=== PATIENT | male | born 1980 | race Caucasian/White ===

== ENCOUNTER 2017-06-29 00:34 | Emergency (ER) | payer OTHER ==
--- NOTE | 2017-06-29 01:21 | ED Physician Documentation ---
History of Present Illness - Stated complaint Stated Complaint: MALE - Chief complaint Chief Complaint: General - History obtained from History obtained from: Patient - History of Present Illness Timing: Today Improved by: no ameliorating factors Worsened by: no exacerbating factors - Additonal information Additional information: c/o hemorrhoids noticed earlier today when showering, manifest as mildly tender lumps around anus. had hemorrhoids preciously, but not for many years. Review of Systems GI: denies: Abdominal Pain PD PAST MEDICAL HISTORY - Past Medical History Past Medical History: Yes GI: Diverticulitis Psych: ADD/ADHD Other Past Medical History: Hemorrhoids - Past Surgical History Past Surgical History: Yes HEENT: Myringotomy (tubes) - Present Medications Home Medications: Ambulatory Orders Medication Instructions Recorded Confirmed Dextroamphetamine/Amphetamine 1 tab PO QPM 06/29/17 06/29/17 [Adderall 10 mg Tablet] Dextroamphetamine/Amphetamine 1 tab PO DAILY 06/29/17 06/29/17 [Adderall 20 mg Tablet] Lidocaine Viscous 2% [Xylocaine 1 film MM Q4H PRN #1 bottle 06/29/17 Viscous 2%] Pramoxine HCl [Proctofoam] 15 gm TP TID #1 foam 06/29/17 - Allergies Allergies/Adverse Reactions: Allergies Allergy/AdvReac Type Severity Reaction Status Date / Time No Known Drug Allergies Allergy Verified 06/29/17 00:44 - Social History Does the pt smoke?: No Smoking Status: Never smoker Does the pt drink ETOH?: Yes Does the pt have substance abuse?: No - Immunizations Immunizations are current?: Yes - POLST Patient has POLST: No PD ED PE NORMAL - Vitals Vital signs reviewed: Yes - General General: Alert and oriented X 3, No acute distress, Well developed/nourished PD ED PE EXPANDED - Rectal Rectal: Hemorrhoid (large hemorrhoid and two smaller hemorrhoids without evidence of thrombosis, minimal tenderness) Results - Vitals Vitals: Vital Signs - 24 hr 06/29/17 06/29/17 00:35 02:30 Temperature 36.8 C Heart Rate 73 71 Respiratory 16 18 Rate Blood Pressure 128/81 H 134/90 H O2 Saturation 98 Oxygen O2 Source Room air PD MEDICAL DECISION MAKING - ED course Complexity details: considered differential, d/w patient Departure - Departure Disposition: 01 Home, Self Care Clinical Impression: Hemorrhoids Condition: Good Instructions: ED Hemorrhoids Follow-Up: [facility] [Provider Group] Prescriptions: Lidocaine Viscous 2% [Xylocaine Viscous 2%] 1 film MM Q4H PRN #1 bottle PRN Reason: Pain Pramoxine HCl [Proctofoam] 15 gm TP TID #1 foam Discharge Date/Time: 06/29/17 02:32
[2017-06-29] MEDS ORDERED: IBUPROFEN 600 MG TABLET PO STA (02:13)
[2017-06-29 02:36] VITALS: BP 134/90
[2017-06-29] MEDS ORDERED: IBUPROFEN 600 MG TABLET PO ONE (02:36)
== END 2017-06-29 02:32 | disposition home or self-care (01) ==
LOC: ED 00:34
DX: K64.9 Unspecified hemorrhoids (principal); Z87.19 Personal history of other diseases of the digestive system
CPT/HCPCS: 99283; A9270

== ENCOUNTER 2017-11-15 21:45 | Emergency (ER) | payer OTHER ==
--- NOTE | 2017-11-15 22:25 | ED Physician Documentation ---
PD HPI OPHTHO - Stated complaint Stated Complaint: SWOLLEN RT EYELID - Chief complaint Chief Complaint: Heent - History obtained from History obtained from: Patient - History of Present Illness Timing - onset: How many days ago (2) Timing - duration: Days (2) Timing - details: Gradual onset Pain level max: 3 Pain level now: 3 Location: Right Quality / character: Aching Associated symptoms: Redness, Swelling, Discharge Contributing factors: No: Exposed to conjunctivitis, Recent URI, FB, UV light ( welding etc), Chemical exposure, acid, Chemical exposure, base, Blunt trauma, Wears glasses, Wears contacts Similar symptoms before: Has not had sx before Recently seen: Other (seen at sick call yesterday for same.) Review of Systems Constitutional: denies: Fever, Chills Skin: denies: Rash Musculoskeletal: denies: Neck pain, Back pain Neurologic: denies: Headache PD PAST MEDICAL HISTORY - Past Medical History Past Medical History: No GI: Diverticulitis Psych: ADD/ADHD - Past Surgical History Past Surgical History: Yes HEENT: Myringotomy (tubes) - Present Medications Home Medications: Ambulatory Orders Medication Instructions Recorded Confirmed Dextroamphetamine/Amphetamine 1 tab PO QPM 06/29/17 11/15/17 [Adderall 10 mg Tablet] Dextroamphetamine/Amphetamine 1 tab PO DAILY 06/29/17 11/15/17 [Adderall 20 mg Tablet] Polymyxin B/Trimeth Ophth Drop 1 drops RIGHTEYE Q3H 7 Days #1 11/15/17 [Polytrim Ophth Drops] bottle - Allergies Allergies/Adverse Reactions: Allergies Allergy/AdvReac Type Severity Reaction Status Date / Time No Known Drug Allergies Allergy Verified 11/15/17 21:52 - Living Situation Living Arrangement: reports: At home - Social History Does the pt smoke?: No Smoking Status: Never smoker Does the pt drink ETOH?: Yes Does the pt have substance abuse?: No - Immunizations Immunizations are current?: Yes - POLST Patient has POLST: No PD ED PE NORMAL - Vitals Vital signs reviewed: Yes - General General: Alert and oriented X 3 - HEENT HEENT: PERRL, EOMI, Moist mucous membranes, Other (Left eye and eyelid is normal. Right eye there is mild swelling to the lower eyelid. Slight yellow discharge. Conjunctival injection present. Fluorescein staining reveals no acute abnormalities. No visible foreign bodies. Eyelids everted. Normal vision.) - Neck Neck: Supple, no meningeal sign - Cardiac Cardiac: RRR - Respiratory Respiratory: No respiratory distress, Clear bilaterally - Derm Derm: Warm and dry - Neuro Neuro: Alert and oriented X 3 Results - Vitals Vitals: Vital Signs - 24 hr 11/15/17 11/15/17 11/15/17 21:47 22:52 23:00 Temperature 36.6 C 36.6 C 36.6 C Heart Rate 81 74 78 Respiratory 15 16 18 Rate Blood Pressure 146/99 H 128/96 H 137/97 H O2 Saturation 97 98 98 Oxygen O2 Source Room air PD MEDICAL DECISION MAKING - ED course Complexity details: considered differential, d/w patient, d/w family ED course: Patient is a 37-year-old male who presents to the emergency department with what appears to be a right eye bacterial conjunctivitis. He is well-appearing, nontoxic. No evidence of foreign body or corneal ulcer. Does not wear contacts or glasses. Will place on Polytrim ophthalmic and have him follow-up with his doctor. Patient counseled regarding signs and symptoms for which I believe and urgent re-evaluation would be necessary. Patient with good understanding of and agreement to plan and is comfortable going home at this time This document was made in part using voice recognition software. While efforts are made to proofread this document, sound alike and grammatical errors may occur. Departure - Departure Disposition: 01 Home, Self Care Clinical Impression: Bacterial conjunctivitis of right eye Condition: Good Instructions: ED Conjunctivitis Bacterial Follow-Up: your,doctor in 1 week if not better [Other] Prescriptions: Polymyxin B/Trimeth Ophth Drop [Polytrim Ophth Drops] 1 drops RIGHTEYE Q3H 7 Days #1 bottle Comments: Use the eye drops every 3 hours while awake. Also apply warm compresses 3 times per day. Return if you worsen. Discharge Date/Time: 11/15/17 23:01
[2017-11-15] MEDS ORDERED: PROPARACAINE 0.5% OPHTH DROPS 15 ML EACHEYE STA (22:26)
[2017-11-15] MEDS ORDERED: POLYMYXIN B/TRIMETH OPHTH DROPS RIGHTEYE STA (22:35)
[2017-11-15 23:01] VITALS: BP 137/97
== END 2017-11-15 23:01 | disposition home or self-care (01) ==
LOC: ED 21:45
DX: H10.021 Other mucopurulent conjunctivitis, right eye (principal)
CPT/HCPCS: 99283; A9270; J3490

== ENCOUNTER 2019-11-03 09:32 | Emergency (ER) | payer OTHER ==
--- NOTE | 2019-11-03 10:08 | ED Physician Documentation ---
History of Present Illness - Stated complaint Stated Complaint: R LEG PX,BACK PX - Chief complaint Chief Complaint: Ext Problem - History obtained from History obtained from: Patient - Additonal information Additional information: Patient comes emergency department complaining of right lower extremity pain for the last 3 weeks. He states he really does not have any pain on the left side, though this is documented in triage note. The patient states that it started around 15 of October with a feeling of spasm in his calf. The patient states that he was seen by his primary care physician, who put him on a muscle relaxer. Patient states he ran out of his muscle relaxer a few days ago, and that did not seem to help the pain all that much. He states that now, he has a feeling of pain behind his right knee and up into his hamstrings area. He states his right hip also hurts somewhat and that his back is sore. Patient states that the pain definitely feels like it is coming from the leg and not from the back. He denies any history of sciatica. No DVT history. He has not had a significant GI illness at any time the last few weeks with suspected electrolyte loss. He states he really has not been working out much since the code quarantine was initiated. He denies any fevers or chills. No redness no recent back injury. Patient states that he does have a history of some "back problems" but that he has never had anything like this before. He is not in any diuretic medications currently. No other complaints at this time. Review of Systems Ten Systems: 10 systems reviewed and negative Constitutional: reports: Reviewed and negative Eyes: reports: Reviewed and negative Ears: reports: Reviewed and negative Nose: reports: Reviewed and negative Throat: reports: Reviewed and negative Cardiac: reports: Reviewed and negative Respiratory: reports: Reviewed and negative GI: reports: Reviewed and negative : reports: Reviewed and negative Skin: reports: Reviewed and negative Musculoskeletal: reports: Extremity pain. denies: Extremity swelling Neurologic: reports: Reviewed and negative Psychiatric: reports: Reviewed and negative Endocrine: reports: Reviewed and negative Immunocompromised: reports: Reviewed and negative PD PAST MEDICAL HISTORY - Past Medical History GI: Diverticulitis Psych: ADD/ADHD - Past Surgical History Past Surgical History: Yes HEENT: Myringotomy (tubes) - Present Medications Home Medications: Ambulatory Orders Medication Instructions Recorded Confirmed Cyclobenzaprine [Flexeril] 10 mg PO DAILY PRN 20 Days #20 11/03/19 tablet Loratadine [Claritin] 10 mg PO 11/03/19 Pregabalin [Lyrica] 50 mg PO DAILY 14 Days #20 capsule 11/03/19 - Allergies Allergies/Adverse Reactions: Allergies Allergy/AdvReac Type Severity Reaction Status Date / Time No Known Drug Allergies Allergy Verified 11/03/19 09:39 - Social History Does the pt smoke?: No Smoking Status: Never smoker Does the pt drink ETOH?: Yes Does the pt have substance abuse?: No - Immunizations Immunizations are current?: Yes - POLST Patient has POLST: No PD ED PE NORMAL - Vitals Vital signs reviewed: Yes - General General: Alert and oriented X 3, No acute distress, Well developed/nourished - HEENT HEENT: Atraumatic, PERRL, EOMI, Moist mucous membranes - Neck Neck: Supple, no meningeal sign - Cardiac Cardiac: RRR, No murmur - Respiratory Respiratory: No respiratory distress, Clear bilaterally - Abdomen Abdomen: Soft, Non tender, Non distended - Back Back: No spinal TTP, Other (Patient has tenderness over the posterior aspect of his right iliac wing.) - Derm Derm: Normal color, Warm and dry, No rash - Extremities Extremities: No deformity, Normal ROM s pain, No edema, Other (Patient has some tenderness of his distal calf muscle on the right, as well asTenderness just medial to his lateral hamstring tendon. No tenderness over his right hip.No edema of his knee. No joint line tenderness or peripatellar tenderness.) - Neuro Neuro: Alert and oriented X 3, web content executive 2-12 intact, No motor deficit, No sensory deficit, Normal speech - Psych Psych: Normal mood, Normal affect Results - Vitals Vitals: Vital Signs - 24 hr 11/03/19 11/03/19 09:37 12:39 Temperature 36.8 C Heart Rate 99 73 Respiratory 16 16 Rate Blood Pressure 157/113 H 154/109 H O2 Saturation 99 100 Oxygen O2 Source Room air - Labs Labs: Laboratory Tests 11/03/19 10:11 Sodium 137 Potassium 3.8 Chloride 100 L Carbon Dioxide 30 Anion Gap 7.0 BUN 20 Creatinine 0.9 Estimated GFR (MDRD) 93 Glucose 104 H Calcium 9.5 Total Bilirubin 0.8 AST 30 ALT 59 Alkaline Phosphatase 79 Total Protein 7.8 Albumin 4.6 Globulin 3.2 Albumin/Globulin Ratio 1.4 Lipase 27 - Rads (name of study) Duplex ultrasound right lower extremity Radiology: Final report received, See rad report (Negative DVT.) PD MEDICAL DECISION MAKING - ED course Complexity details: reviewed results, re-evaluated patient, considered differential, d/w patient ED course: The patient symptoms seem to most consistent with a muscular etiology. In light of this, I did feel electrolytes should be evaluated to see if an electrolyte abnormality was responsible for the repeated spasming. I did also order an ultrasound the patient's right lower extremity to evaluate not only for potential atypical presentation of DVT, but also for presence of Rizo's cyst which may be irritating the area and causing a feeling of spasm, as well. Both studies were done and unremarkable. The patient stated that the muscle relaxers that helped him sleep, and he would not mind having a real refill of that prescription. I discussed with him that his symptoms may represent a form of restless leg syndrome, and patient did note that he had wondered if this was part of his problem, because he feels a pressure in his legs often at night and feels that he has to kick it or move it to get rid of the sensation. He states his also has restless leg syndrome, and now notes that he mainly came in because she made him because he was keeping her awake at night with his thrashing around. I have given the patient a refill of the Flexeril, with instructions to follow-up with his primary care physician to discuss further management and work-up of this problem, as well as to address his elevated blood pressure. I have also given him a two-week trial of Lyrica which he may use as an alternative to the Flexeril, to see if this is more helpful. We have di scussed home management of the symptoms, as well as the usual indications for return. Departure - Departure Disposition: 01 Home, Self Care Clinical Impression: Muscle spasm of calf Pain in extremity Qualifiers: Extremity pain location: lower leg Laterality: right Qualified Code(s): M79.661 - Pain in right lower leg Condition: Stable Instructions: ED Muscle Pain Leg Cramps Prescriptions: Cyclobenzaprine [Flexeril] 10 mg PO DAILY PRN 20 Days #20 tablet PRN Reason: Spasms Pregabalin [Lyrica] 50 mg PO DAILY 14 Days #20 capsule Comments: Your electrolytes and ultrasound look good. It is not clear exactly what is causing the heaviness or spasms, but this may be related to restless leg syndrome. The muscle relaxers have been refilled, but you may also try, as an alternative, taking the pregabalin/Lyrica, which has been prescribed today. This is one of the medications used for restless leg syndrome, which is found to be helpful. Please make an appointment today to follow-up with your primary care physician regarding this as well as the high blood pressure you have been having. Discharge Date/Time: 11/03/19 12:41
[2019-11-03 10:31] LABS: ALBUMIN 4.6 g/dL (3.2-5.5); ALBUMIN/GLOBULIN RATIO 1.4 (1.0-2.2); BILIRUBIN,TOTAL 0.8 mg/dL (0.2-1.0); CALCIUM 9.5 mg/dL (8.5-10.3); CREATININE 0.9 mg/dL (0.6-1.2); TOTAL PROTEIN 7.8 g/dL (6.7-8.2)
--- NOTE | 2019-11-03 11:54 | Ultrasound Report ---
Reason: RLE pain x 3 weeks Procedure Date: 11/03/2019 Accession Number: [id number] / [id number] Procedure: US - Duplex Ext Veins Right CPT Code: Final Report FULL RESULT: EXAM: RIGHT LOWER EXTREMITY VENOUS ULTRASOUND EXAM DATE: 11/03/2019 11:33 AM. CLINICAL HISTORY: Right lower extremity pain x 3 weeks. COMPARISON: None. TECHNIQUE: Real-time sonographic vascular imaging was performed by the cable splicer helper through the lower extremity utilizing both color-flow and Doppler spectral analysis. Multiple member services representative static images were saved for review. FINDINGS: Common Femoral Vein (CFV): Normal. CFV-GSV Junction: Normal. Profunda Femoral Vein (PFV): Normal. Femoral Vein (FV) Prox: Normal. Femoral Vein (FV) Mid: Normal. Femoral Vein (FV) Dist: Normal. Popliteal Vein: Normal. Posterior Tibial Veins: Normal. Peroneal Veins: Normal. Other: None. IMPRESSION: No evidence for deep venous thrombosis in the right lower extremity. RADIA
[2019-11-03 12:41] VITALS: BP 154/109
== END 2019-11-03 12:41 | disposition home or self-care (01) ==
LOC: ED 09:32
DX: M62.831 Muscle spasm of calf (principal); M79.661 Pain in right lower leg
CPT/HCPCS: 36415; 80053; 82310; 83690; 99284; 99285

== ENCOUNTER 2020-11-07 11:31 | Emergency (ER) | payer OTHER ==
[2020-11-07] MEDS ORDERED: KETOROLAC 60 MG/2 ML VIAL IM STA (11:51)
--- NOTE | 2020-11-07 11:56 | ED Physician Documentation ---
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 Began yesterday. He reports tingling in the small and ring finger of the small hand as well as intermittently the thumb. pain is sharp, will radiate from his wrists to the shoulder. sometimes feels a cramping in his muscles. He has been told in the past that he has suspected carpal tunnel but does not consistently wear his braces at night. He denies neck pain chest pain shortness of air or any recent falls or trauma though in the past he has been treated with physical therapy for upper back and spine pain. He has not taken anything for analgesia. He has no fevers arm swelling or erythema. Review of Systems Constitutional: denies: Fever, Chills, Myalgias Eyes: reports: Reviewed and negative Ears: reports: Reviewed and negative Nose: reports: Reviewed and negative Throat: reports: Reviewed and negative Cardiac: denies: Chest pain / pressure, Palpitations, Pedal edema, Calf pain Respiratory: denies: Dyspnea, Cough, Hemoptysis, Wheezing GI: denies: Abdominal Pain, Abdominal Swelling, Nausea, Vomiting : denies: Dysuria, Frequency Skin: denies: Rash, Lesions Musculoskeletal: reports: Extremity pain (right arm). denies: Neck pain, Back pain Neurologic: denies: Generalized weakness, Focal weakness, Syncope Psychiatric: reports: Reviewed and negative PD PAST MEDICAL HISTORY - Past Medical History GI: Diverticulitis Psych: ADD/ADHD - Past Surgical History Past Surgical History: Yes HEENT: Myringotomy (tubes) - Present Medications Home Medications: Ambulatory Orders Medication Instructions Recorded Confirmed Dextroamphetamine/Amphetamine 25 mg PO DAILY 11/07/20 11/07/20 [Adderall Xr 25 mg Capsule] Hydrochlorothiazide 25 mg PO DAILY 11/07/20 11/07/20 Ibuprofen [Motrin] 600 mg PO Q6H PRN #30 tab 11/07/20 - Allergies Allergies/Adverse Reactions: Allergies Allergy/AdvReac Type Severity Reaction Status Date / Time No Known Drug Allergies Allergy Verified 11/07/20 11:34 - Social History Does the pt smoke?: No Smoking Status: Never smoker Does the pt drink ETOH?: Yes Does the pt have substance abuse?: No - Immunizations Immunizations are current?: Yes - POLST Patient has POLST: No PD ED PE EXPANDED - General General: Alert, Well developed/nourished - Neck Neck: Supple w/out meningeal sx. No: Adenopathy, No tenderness, Soft tissue TTP, Bony TTP, Limited ROM (full ROM in all planes; no pain with axial loading) - Cardiac Cardiac: Regular Rate, Radial strong equal, Cap refill < 2 sec. No: Murmur Present - Respiratory Respiratory: Clear to ausultation clive. No: Distress, Labored - Extremities Extremities: Normal, Right shoulder (normal exam; no pain with movement. no pain with phalens. No swellign, erythema. 2+ radial pulse. Normal grasp and reflexes brachail of the right arm). No: Deformity, Tenderness - Neuro Neuro: Alert and Oriented X 3, CNII-XII intact - GCS Eye Opening: Spontaneous Motor: Obeys Commands Verbal: Oriented Total: 15 Results - Vitals Vitals: Vital Signs - 24 hr 11/07/20 11:34 Temperature 36 C L Heart Rate 74 Respiratory 16 Rate Blood Pressure 156/101 H O2 Saturation 97 Oxygen O2 Source Room air - Rads (name of study) Cervical spine xr Radiology: Final report received (Multilevel degenerative disc disease.) PD MEDICAL DECISION MAKING - ED course Complexity details: reviewed results, re-evaluated patient ED course: 40-year-old male presents emergency department for evaluation of right forearm pain as well as numbness and tingling in the small and ring fingers of the right hand. He does have a history of carpal tunnel for which she is not consistently wearing his nighttime brace. There are no obvious examination findings. Subjectively he has some tingling but no loss of strength or weakness. There is no swelling or erythema to suggest infection or DVT. Cervical spine imaging reveals multilevel degenerative disc disease. However he had no pain with axial loading and no increase in tingling therefore I doubt cervical radiculopathy however given the presentation in the forearm and small and ring fingers I suspect an ulnar neuropathy or compression syndrome. Patient will be given a nighttime wrist splint recommendation for NSAID medication and follow-up with [facility]. He may benefit from an EMG or referral to hand therapy. Departure - Departure Disposition: 01 Home, Self Care Clinical Impression: Right forearm pain DJD (degenerative joint disease), cervical Qualifiers: Spinal osteoarthritis complication: with radiculopathy Qualified Code(s): M47.22 - Other spondylosis with radiculopathy, cervical region Condition: Stable Record reviewed to determine appropriate education?: Yes Instructions: ED Carpal Tunnel, ED Degenerative Joint Disease Prescriptions: Ibuprofen [Motrin] 600 mg PO Q6H PRN #30 tab PRN Reason: Pain Comments: Pritesh allison were seen in the emergency department today for concern of tingling in the fingers of your right hand as well as forearm pain. The x-ray of your cervical spine shows that you are developing degenerative disc disease in your cervical spine. This may be contributing to your symptoms. As we discussed I suspect the cause of your symptoms is most likely a nerve entrapment. Likely worsening carpal tunnel or even ulnar nerve entrapment coming from the elbow. Please wear the wrist splint at nighttime. Would also like you to take a course of ibuprofen 3 times a day for the next 4 to 5 days until you see [facility]. In the long-term you may benefit from referral to hand therapy or an EMG to obtain a nerve conduction study. If at any point you have forearm swelling, redness chest pain or shortness of air then please return immediately to the ER for a second look.
--- OUTSIDE RECORDS SUMMARY | 2020-11-07 11:58 | EXTERNAL MEDICAL SUMMARY RPT | Continuity of Care Document ---
:1980 Demographics Phone Unavailable Preferred Language Unknown Marital Status Unknown Muslim Affiliation Unknown Race Unknown Ethnic Group Unknown Author Organization [facility] Address [address] [id number] Phone Social History date description facility [phone]
--- NOTE | 2020-11-07 12:41 | XRAY Report ---
PROCEDURE: Cervical Spine 2 View INDICATIONS: right arm pain; DJD TECHNIQUE: 3 view(s) of the cervical spine were acquired. COMPARISON: None. FINDINGS: Bones: No fractures or dislocations to the T1 moderate bilateral C4-C5 and C5-C6 uncovertebral joint hypertrophy. level. The lateral masses of C1 appear intact on the odontoid view. No suspicious bon y lesions. Moderate C5-C6 degenerative disc disease. Mild to moderate C6-C7 degenerative disease mild C4-C5 and C7-T1 degenerative disc disease. Soft tissues: No prevertebral soft tissue swelling. IMPRESSION: 1. Multilevel degenerative disc disease. 2. Multilevel uncovertebral arthropathy. 3. No fracture. No acute osseous lesion. If there is continued clinical concern for pathology, then M RI should be considered for further evaluation. Reviewed by: Carmela Edwards MD, PhD on 11/07/2020 12:39 PM PDT Approved by: Carmela Edwards MD, PhD on 11/07/2020 12:39 PM PDT Station ID: [id number]
[2020-11-07 13:09] VITALS: BP 149/98
== END 2020-11-07 13:11 | disposition home or self-care (01) ==
LOC: ED 11:31
DX: M79.631 Pain in right forearm (principal); M47.22 Other spondylosis with radiculopathy, cervical region; M50.121 Cervical disc disorder at C4-C5 level with radiculopathy; G56.01 Carpal tunnel syndrome, right upper limb
CPT/HCPCS: 96372; 99283; 99284

== ENCOUNTER 2021-09-18 14:14 | Emergency (ER) | payer OTHER ==
[2021-09-18 14:22] VITALS: BP 169/107
[2021-09-18 14:53] LABS: BASOPHILS % (AUTO) 0.3 %; EOSINOPHILS # (AUTO) 0.3 10^3/uL (0.0-0.7); EOSINOPHILS % (AUTO) 2.4 %; HCT - HEMATOCRIT 45.4 % (42.0-52.0); HGB - HEMOGLOBIN 16.1 g/dL (14.0-18.0); LYMPHOCYTES # (AUTO) 2.8 10^3/uL (1.5-3.5); LYMPHOCYTES % (AUTO) 25.9 %; MEAN CORPUSCULAR HEMOGLOBIN 30.8 pg (27.0-31.0); MEAN CORPUSCULAR HGB CONC 35.5 g/dL (32.0-36.0); MEAN PLATELET VOLUME 8.7 fL (7.4-11.4); MONOCYTES # (AUTO) 0.9 10^3/uL (0.0-1.0); MONOCYTES % (AUTO) 8.2 %; NEUTROPHILS # (AUTO) 6.9 10^3/uL (1.5-6.6); PLT - PLATELET COUNT 327 10^3/uL (130-450); RED BLOOD COUNT 5.22 10^6/uL (4.70-6.10); RED CELL DISTRIBUTION WIDTH 12.6 % (12.0-15.0); WHITE BLOOD COUNT 10.9 x10^3/uL (4.8-10.8)
[2021-09-18 15:07] LABS: ALBUMIN 4.8 g/dL (3.2-5.5); ALBUMIN/GLOBULIN RATIO 1.4 (1.0-2.2); BILIRUBIN,TOTAL 0.9 mg/dL (0.2-1.0); CALCIUM 9.9 mg/dL (8.5-10.3); POTASSIUM 4.2 mmol/L (3.5-5.0); TOTAL PROTEIN 8.2 g/dL (6.7-8.2)
--- NOTE | 2021-09-18 16:03 | ED Physician Documentation ---
PD HPI ABD PAIN - Stated complaint Stated Complaint: RT ABD PX - Chief complaint Chief Complaint: Abd Pain - History obtained from History obtained from: Patient - History of Present Illness Timing - onset: Today Timing - duration: Hours Timing - details: Abrupt onset, Still present Quality: Cramping, Aching, Pain Location: RUQ, Epigastric Radiation: No: Chest, Lower back, Right flank Improved by: No: Laying still Worsened by: Palpation. No: Breathing Associated symptoms: Nausea, Other (has noted some heartburn at times the past week or two.). No: Fever, Vomiting, Constipation, Melena, Loss of appetite Similar symptoms before: Has not had sx before Recently seen: Clinic ([facility] and referred to ER for concern of needing more prompt testing.) Review of Systems Constitutional: denies: Fever, Chills Nose: denies: Rhinorrhea / runny nose, Congestion Throat: denies: Sore throat Respiratory: denies: Cough GI: reports: Abdominal Pain, Nausea. denies: Vomiting, Diarrhea, Bloody / black stool Neurologic: denies: Generalized weakness, Near syncope PD PAST MEDICAL HISTORY - Past Medical History Cardiovascular: Hypertension Respiratory: None Neuro: Headaches Endocrine/Autoimmune: None GI: Diverticulitis : None HEENT: None Psych: ADD/ADHD Musculoskeletal: Chronic back pain Derm: None - Past Surgical History Past Surgical History: Yes HEENT: Myringotomy (tubes) - Present Medications Home Medications: Ambulatory Orders Medication Instructions Recorded Confirmed hydroCHLOROthiazide 25 mg PO DAILY 11/07/20 09/18/21 [Hydrochlorothiazide] Famotidine [Pepcid] 20 mg PO DAILY #20 tablet 09/18/21 Telmisartan 20 mg PO 09/18/21 - Allergies Allergies/Adverse Reactions: Allergies Allergy/AdvReac Type Severity Reaction Status Date / Time No Known Drug Allergies Allergy Verified 09/18/21 14:22 - Living Situation Living Situation: reports: With spouse/s.o. Living Arrangement: reports: At home - Social History Does the pt smoke?: No Smoking Status: Never smoker Does the pt drink ETOH?: Yes ETOH Use: Other (occasional) Does the pt have substance abuse?: No - Immunizations Immunizations are current?: Yes - POLST Patient has POLST: No PD ED PE NORMAL - Vitals Vital signs reviewed: Yes - General General: Alert and oriented X 3, No acute distress, Well developed/nourished - Neck Neck: Supple, no meningeal sign, No adenopathy - Cardiac Cardiac: RRR, No murmur - Respiratory Respiratory: Clear bilaterally - Abdomen Abdomen: Normal bowel sounds, Soft, Non distended, No organomegaly, Other (tender without guarding RUQ and epigastric area. ) - Back Back: No CVA TTP - Derm Derm: Normal color, Warm and dry Results - Vitals Vitals: Vital Signs - 24 hr 09/18/21 14:19 Temperature 36.4 C L Heart Rate 71 Respiratory 16 Rate Blood Pressure 169/107 H O2 Saturation 97 Oxygen O2 Source Room air - Labs Labs: Laboratory Tests 09/18/21 09/18/21 09/18/21 14:48 14:48 16:18 WBC 10.9 H RBC 5.22 Hgb 16.1 Hct 45.4 MCV 87.0 MCH 30.8 MCHC 35.5 RDW 12.6 Plt Count 327 MPV 8.7 Neut # (Auto) 6.9 H Lymph # (Auto) 2.8 [place] # (Auto) 0.9 Eos # (Auto) 0.3 Baso # (Auto) 0.0 Absolute Nucleated RBC 0.00 Nucleated RBC % 0.0 Sodium 138 Potassium 4.2 Chloride 100 L Carbon Dioxide 28 Anion Gap 10.0 BUN 15 Creatinine 1.0 Estimated GFR (MDRD) 82 L Glucose 96 Calcium 9.9 Total Bilirubin 0.9 AST 24 ALT 43 Alkaline Phosphatase 79 Total Protein 8.2 Albumin 4.8 Globulin 3.4 Albumin/Globulin Ratio 1.4 Lipase 30 Urine Color YELLOW Urine Clarity CLEAR Urine pH 5.5 Ur Specific [place] 1.025 Urine Protein NEGATIVE Urine Glucose (UA) NEGATIVE Urine Ketones NEGATIVE Urine Occult Blood NEGATIVE Urine Nitrite NEGATIVE Urine Bilirubin NEGATIVE Urine Urobilinogen 0.2 (NORMAL) Ur Leukocyte Esterase NEGATIVE Ur Microscopic Review NOT INDICATED Urine Culture Comments NOT INDICATED - Rads (name of study) RUQ U/S Radiology: Prelim report reviewed (RUQ U?S shows normal gallbladder and CBD. NO acute process. labs good. GIVen GI cocktail with resolution of abd cramping. SEems like gastritis. ), See rad report PD MEDICAL DECISION MAKING - ED course Complexity details: reviewed results, considered differential (GB versus biliar vs gastritis vs other process. ), d/w patient Departure - Departure Disposition: 01 Home, Self Care Clinical Impression: Upper abdominal pain Acute gastritis Qualifiers: Gastritis type: unspecified gastritis Gastritis bleeding: without bleeding Qualified Code(s): K29.00 - Acute gastritis without bleeding Condition: Stable Record reviewed to determine appropriate education?: Yes Instructions: ED Gastritis Follow-Up: Rakan Barker MD [Primary Care Provider] - Prescriptions: Famotidine [Pepcid] 20 mg PO DAILY #20 tablet Comments: Your blood tests including those focused on pancreas and liver as well as your ultrasound are normal. No signs of gallbladder stones inflammation or swelling. I think you have symptoms related to an irritation of the stomach (gastritis). Avoid irritants of the stomach such as excess caffeine, alcohol, spicy foods. Regular diet is okay. I would just suggest famotidine acid reducing medicine twice daily for the next few days and then once daily for 2 or 3 weeks. To that you can add antacid such as Maalox Mylanta Tums or similar every 2 or 3 hours if needed for discomfort. This may be most useful before bedtime and after meals. Recheck if not improved well over the next few days and read to her and if worsening pain, vomiting, migration of the pain to other areas, fevers or other concerns. Discharge Date/Time: 09/18/21 17:39
[2021-09-18] MEDS ORDERED: MAG HYDROX/AL HYDROX/SIMETH 30 ML UDC PO STA (16:25)
[2021-09-18] MEDS ORDERED: LIDOCAINE VISCOUS 2% 15 ML UDC MM STA (16:25)
--- NOTE | 2021-09-18 16:26 | Ultrasound Report ---
PROCEDURE: Abdomen Limited INDICATIONS: RUQ pain today after eating lunch TECHNIQUE: Real-time scanning was performed of the abdominal and retroperitoneal organs, with image documentatio n. COMPARISON: None. FINDINGS: Liver: The liver demonstrates diffusely increased echotexture without focal abnormalities which is c onsistent with chronic hepatocellular disease/hepatic steatosis. Gallbladder: Gallbladder is normal in appearance without gallstones, gallbladder wall thickening, or pericholecystic fluid. Negative sonographic Hyde's sign. Biliary ducts: Intrahepatic bile ducts are non-dilated. Extrahepatic bile duct caliber measures 7 m m. Normal is 6-7 mm or less in diameter, or 10 mm or less post-cholecystectomy. Pancreas: Visualized portions of the pancreas are sonographically normal. Kidneys: Right kidney is normal in size and echotexture. Right kidney measures 11.1 cm long. No hydr onephrosis or nephrolithiasis. No solid masses. Miscellaneous: No free abdominal fluid. IMPRESSION: Diffusely increased hepatic echotexture likely representing hepatic steatosis or sequela of chronic h epatocellular disease. Normal sonographic appearance of the gallbladder. No evidence for cholecystitis or cholelithiasis. Reviewed by: Zeeshan De La Rosa MD on 09/18/2021 4:24 PM PST Approved by: Zeeshan De La Rosa MD on 09/18/2021 4:24 PM PST Station ID: [id number]
[2021-09-18 16:48] LABS: BILIRUBIN,URINE NEGATIVE (NEGATIVE); GLUCOSE, URINE (UA) NEGATIVE (NEGATIVE); KETONES,URINE (UA) NEGATIVE (NEGATIVE); LEUKOCYTE ESTERASE, URINE NEGATIVE (NEGATIVE); NITRITE,URINE NEGATIVE (NEGATIVE); OCCULT BLOOD,URINE NEGATIVE (NEGATIVE); PH,URINE 5.5 PH (5.0-7.5); PROTEIN,URINE NEGATIVE (NEGATIVE); UROBILINOGEN,URINE 0.2 (NORMAL) E.U./dL (NORMAL)
[2021-09-18 16:50] LABS: CLARITY,URINE CLEAR (CLEAR)
[2021-09-18] MEDS ORDERED: FAMOTIDINE 20 MG TABLET PO STA (17:12)
== END 2021-09-18 17:39 | disposition home or self-care (01) ==
LOC: ED 14:14
DX: K29.00 Acute gastritis without bleeding (principal); I10 Essential (primary) hypertension
CPT/HCPCS: 36415; 76705; 80053; 81003; 83690; 85025; 99282; 99284; A9270; 81001; 87086

== ENCOUNTER → 2021-11-26 | Outpatient (CLI) | payer OTHER ==
[2021-11-26 18:10] VITALS: BP 146/88
--- NOTE | 2021-11-26 18:10 | SLEEP CARE CONSULTATION ---
Information from patient questionnaire entered by Mike Gatica. I have reviewed and concur with the information entered by Mike Gatica. This document represents the service I personally performed and the decisions made by me, Ulises Howard MD, [facility]. History of Present Illness Service Date and Time: 11/26/2021 1120 Reason for Visit: New patient (INITAL, ONSET 07/2008, HASN'T USED CPAP SINCE 2012) Chief Complaint: reports: Insomnia, Unrefreshed sleep, Snoring, Excessive daytime sleepiness, Observed pauses in breathing, Fatigue, Frequent awakenings at night, Other (update supplies) Date of Onset: 2009 Usual bedtime: 10-1200 Time it takes to fall asleep: TEN MINUTES TO HOURS Snores at night: Yes Observed to quit breathing while asleep: Yes Sleeps alone due to snoring: No Number of times waking at night: A LOT PER PT Reasons for waking at night: reports: Snoring, Gasping for air, Bathroom, Other (NOISE) Toss, Turn, or Twitch while sleeping: Yes Recalls having dreams: No Usually gets out of bed at: 5-6 Feels refreshed in the morning: No Morning headache: No Sleepy or fatigued during the day: Yes Ever fallen asleep while driving: No Takes day naps: Yes Dreams during day naps: No Prior sleep studies: Yes Year and Where: 2009 AND 06-06-17, [facility] Additional HPI information: I had the pleasure of seeing Mr. Wellington today regarding obstructive sleep apnea-hypopnea. As you know, he is a 41-year-old gentleman who was initially diagnosed around the year 2009 with the sleep-disordered breathing in [place]. He [facility] that showed mild obstructive sleep apnea-hypopnea with an AHI of 10.0. He said he used a CPAP between 2009 and 2012 only. He can recall some improvement on the treatment. Presently, he snores loudly and his has seen him quit breathing. He goes to bed around 10 pm to midnight. It takes him about 10 minutes to fall asleep. He wakes up 5 6 times during the night. In the morning he gets up around 5 6 am. During the day he feels sleepy. His [place] Sleepiness Scale score is 11. He reports problems with memory and concentration. - Parasomnia Symptoms Ever been unable to move upon waking from sleep: Yes Walks in sleep: No Talks in sleep: No Ever acted out dreams in sleep: No Ever felt weak in the knees when startled or emotional: No Bothered by creepy, crawly, restless sensations in legs: Yes Problems with memory or concentration: Yes Subjective Initial [place] Sleepiness Scale score: 11 (11/26/21) Past Medical History Past Medical History: reports: Hypertension, Other (ATTENTION DEFICIT ) Social History The patient's occupation is a AM. Patient is and lives in [place]. Have you smoked in the past 12 months: No Alcohol use: Yes Alcohol amount and frequency: 1-4, NORMALLY LESS THAN 1X/ MONTH Caffeine use: Yes Caffeine amount and frequency: 1-2 DAILY Allergies and Home Medications Drug allergies reviewed: Yes Home medication list reviewed: Yes Allergy and home medication list: Allergies No Known Drug Allergies Allergy (Verified 09/18/21 14:22) Review of Systems Cardiovascular: reports: high blood pressure Respiratory: denies: shortness of breath, wheeze, sputum production, chronic cough, other Gastrointestinal: reports: heartburn, difficulty swallowing Urinary: denies: incontinence, frequency, urgency, impotence, other Neurological: reports: headaches Psychiatric: reports: Attention Deficit Hyperactivity Ear/Nose/Throat: reports: wisdom teeth removed Endocrine: reports: sluggishness Musculoskeletal: reports: back pain Immunologic: denies: sneezing, rash, itching, allergies to food or environment, other Physical Exam Vital signs obtained and entered by: MAGALLANES MA Blood Pressure: 146/88 Heart Rate: 76 O2 Saturation: 97 Height: 6 ft Weight: 236 lb 6.4 oz Body Mass Index: 32.1 BMI Classification: Obese Impression and Plan IMPRESSION: 1. Obstructive Sleep Apnea-Hypopnea Syndrome, mild, as previously diagnosed but untreated. The patient appears to by symptomatic for loud snore, frequent awakenings, unrefreshed sleep, and excessive daytime sleepiness. Narrow oropharynx and obesity are common predisposing factors for obstructive sleep apnea-hypopnea syndrome. I recommend proceeding to polysomnography to confirm the diagnosis and to reassess severity. I informed the patient of what the sleep studies involve and after some discussion, he agreed to proceed. Plan: 1. Schedule an in-laboratory polysomnography. . 2. Avoid long distance driving or when feeling sleepy. 3. Avoid alcohol, sedative and muscle relaxant around bedtime. 4. Attempt to lose weight. Follow up with Sleep Care in: 1-2 months Visit Type: In Office Time Spent with Patient (minutes): 15 Provider Statement: I spent 100% of the Face to Face Visit with the patient with greater than 50% spent counseling the patient and coordination of care.
== END ==
LOC: SC 11:20
PROVIDERS: ATTEND Internal Medicine Pulmonary Disease
DX: G47.33 Obstructive sleep apnea (adult) (pediatric) (principal); E66.9 Obesity, unspecified; Z68.32 Body mass index [BMI] 32.0-32.9, adult
CPT/HCPCS: 99202; 99212

== ENCOUNTER 2021-12-04 19:30 | Outpatient (CLI) | payer OTHER | END 2021-12-04 23:59 | disposition home or self-care (01) | LOC: SC 19:30 | PROVIDERS: ATTEND Nurse Practitioner Family | DX: G47.33 Obstructive sleep apnea (adult) (pediatric) (principal); E66.9 Obesity, unspecified; Z68.32 Body mass index [BMI] 32.0-32.9, adult | CPT/HCPCS: 95810 ==

== ENCOUNTER 2022-01-07 09:05 | Outpatient (CLI) | payer OTHER ==
--- NOTE | 2022-01-07 22:07 | SLEEP CARE CONSULTATION ---
Information from patient questionnaire entered by Daxa Aldridge MA. I have reviewed and concur with the information entered by Daxa Aldridge MA. This document represents the service I personally performed and the decisions made by me, Ulises Howard MD, [facility]. History of Present Illness Service Date and Time: 01/07/2022 0905 Initial [place] Sleepiness Scale score: 11 (11/26/21) Current [place] Sleepiness Scale score: 11 (01/07/2022) Additional HPI information: Mr. Wellington returned for follow up of the sleep study he had on 12/04/2021. The polysomnography showed that the patient had normal sleep efficiency. The sleep architecture was abnormal for sleep fragmentation and reduced amount of time spent in slow wave sleep (N3). Respiratory monitoring showed mild obstructive sleep apnea-hypopnea (AHI = 12.0) associated with frequent arousals, oxyhemoglobin desaturation and mild hypoxia ([place] oxygen saturation of 84%). The respiratory events occurred almost exclusively during supine sleep (supine AHI = 97.2; non-supine = 3.56). Snore was moderate to loud in intensity. There was no significant periodic leg movement of sleep. Cardiac rhythm was normal sinus rhythm without significant arrhythmia. No abnormal behavior (parasomnia) observed during the night. The patient was informed of these findings. I explained to him the pathophysiology behind obstructive sleep apnea. We then spent quite a bit of time discussing different treatment options. For mild obstructive sleep apnea, surgery and oral appliance are alternatives to nasal CPAP therapy but in moderate or severe cases, nasal CPAP is the most effective and reliable treatment. Weight loss in an obese individual is strongly recommended. After some discussion, he opted to try CPAP again. He used a CPAP between 2009 and 2012. He wore a full face mask because somebody told him that air would leak out his mouth if wore just a nasal mask. Sleep Study - Results Type of Sleep Study: Polysomnography (F/U [facility], 12-04-21 [facility],) Prior sleep studies: Yes Year and Where: 2009 AND 06-06-17[facility] Allergies and Home Medications Known drug allergies: No Drug allergies reviewed: Yes Home medication list reviewed: Yes Allergy and home medication list: Allergies No Known Drug Allergies Allergy (Verified 09/18/21 14:22) Review of Systems Review of systems same as previous: Yes Physical Exam Vital signs obtained and entered by: Demond ALDRIDGE CMA AADIANNA Blood Pressure: 128/76 (RESP 18, PULSE 75, RIGHT) Cuff size: wrist Heart Rate: 74 O2 Saturation: 97 (PAPER MASK) Height: 6 ft Weight: 240 lb (PT CLOTHES) Body Mass Index: 32.5 BMI Classification: Obese Impression and Plan IMPRESSION: 1. Obstructive Sleep Apnea-Hypopnea Syndrome, mild (severe when supine). Possibly, this is the cause of the patients symptoms of unrefreshed sleep, and excessive daytime sleepiness. As mentioned above, the patient will be started on an autoCPAP set between 5 15 cmH2O. Depending on his response and compliance he may be brought back for an overnight CPAP titration study. PLAN: 1. Prescription made for an autoCPAP, heated humidifier, and related supplies. 2. Attempt to lose weight and avoid alcohol consumption near bedtime. 3. Avoid sleeping supine when not using a CPAP. 4. Return for follow up after one month of using the CPAP. Prescriptions: Auto CPAP Follow up with Sleep Care in: 1-2 months Visit Type: In Office Time Spent with Patient (minutes): 20 Provider Statement: I spent 100% of the Face to Face Visit with the patient with greater than 50% spent counseling the patient and coordination of care.
[2022-01-07 22:08] VITALS: BP 128/76
== END 2022-01-07 09:06 | disposition home or self-care (01) ==
LOC: SC 09:05
PROVIDERS: ATTEND Internal Medicine Pulmonary Disease
DX: G47.33 Obstructive sleep apnea (adult) (pediatric) (principal); E66.9 Obesity, unspecified; Z68.32 Body mass index [BMI] 32.0-32.9, adult
CPT/HCPCS: 99212; 99213

== ENCOUNTER 2022-08-07 10:48 | Emergency (ER) | payer OTHER ==
[2022-08-07 11:26] LABS: BASOPHILS % (AUTO) 0.2 %; EOSINOPHILS # (AUTO) 0.2 10^3/uL (0.0-0.7); EOSINOPHILS % (AUTO) 2.5 %; HCT - HEMATOCRIT 44.6 % (42.0-52.0); HGB - HEMOGLOBIN 15.6 g/dL (14.0-18.0); LYMPHOCYTES # (AUTO) 2.1 10^3/uL (1.5-3.5); LYMPHOCYTES % (AUTO) 23.9 %; MEAN CORPUSCULAR HEMOGLOBIN 30.1 pg (27.0-31.0); MEAN CORPUSCULAR VOLUME 85.9 fL (80.0-94.0); MEAN PLATELET VOLUME 8.6 fL (7.4-11.4); MONOCYTES # (AUTO) 0.9 10^3/uL (0.0-1.0); MONOCYTES % (AUTO) 9.9 %; NEUTROPHILS # (AUTO) 5.5 10^3/uL (1.5-6.6); NEUTROPHILS % (AUTO) 63.2 %; PLT - PLATELET COUNT 314 10^3/uL (130-450); RED BLOOD COUNT 5.19 10^6/uL (4.70-6.10); RED CELL DISTRIBUTION WIDTH 12.5 % (12.0-15.0); WHITE BLOOD COUNT 8.7 x10^3/uL (4.8-10.8)
--- NOTE | 2022-08-07 11:37 | XRAY Report ---
PROCEDURE: Chest 1 View X-Ray INDICATIONS: Chest pain TECHNIQUE: One view of the chest was acquired. COMPARISON: None. FINDINGS: Surgical changes and devices: None. Lungs and pleura: No pleural effusions or pneumothorax. Lungs are clear. Mediastinum: Mediastinal contours appear normal. Heart size is normal. Bones and chest wall: No suspicious bony lesions. Overlying soft tissues appear unremarkable. IMPRESSION: No acute pulmonary process. Reviewed by: Ros Sharpe MD on 08/07/2022 11:36 AM [facility] Approved by: Ros Sharpe MD on 08/07/2022 11:36 AM [facility] Station ID: [id number]
[2022-08-07 11:41] LABS: ALBUMIN 4.4 g/dL (3.2-5.5); ALBUMIN/GLOBULIN RATIO 1.4 (1.0-2.2); BILIRUBIN,TOTAL 1.2 mg/dL (0.2-1.0); CALCIUM 9.3 mg/dL (8.5-10.3); CREATININE 1.1 mg/dL (0.6-1.2); POTASSIUM 3.8 mmol/L (3.5-5.0); TOTAL PROTEIN 7.5 g/dL (6.7-8.2)
--- NOTE | 2022-08-07 12:19 | ED Physician Documentation ---
PD HPI CHEST PAIN - Stated complaint Stated Complaint: CHEST PX/LIGHTHEADED - Chief complaint Chief Complaint: Cardiac - History obtained from History obtained from: Patient - Additional information Additional information: 41-year-old gentleman with history of previous abnormal endoscopy previously with "throat swelling" was supposed to be on a PPI but is no longer. He was at his desk at work today when he developed substernal chest pressure radiating to the left clavicle. There is no shortness of breath with it. He still feels fatigued and weak legs but the pressure is gone. No history of heart problems. He has hypertension, no family history of Early CAD, no smoking Review of Systems Constitutional: denies: Fever, Chills Cardiac: reports: Chest pain / pressure. denies: Palpitations Respiratory: denies: Dyspnea, Cough PD PAST MEDICAL HISTORY - Past Medical History Cardiovascular: Hypertension Respiratory: None Neuro: Headaches Endocrine/Autoimmune: None GI: Diverticulitis : None HEENT: None Psych: ADD/ADHD Musculoskeletal: Chronic back pain Derm: None - Past Surgical History Past Surgical History: Yes HEENT: Myringotomy (tubes) - Present Medications Home Medications: Ambulatory Orders Medication Instructions Recorded Confirmed hydroCHLOROthiazide 25 mg PO DAILY 11/07/20 09/18/21 [Hydrochlorothiazide] Famotidine [Pepcid] 20 mg PO DAILY #20 tablet 09/18/21 Telmisartan 20 mg PO 09/18/21 - Allergies Allergies/Adverse Reactions: Allergies Allergy/AdvReac Type Severity Reaction Status Date / Time No Known Drug Allergies Allergy Verified 09/18/21 14:22 - Social History Does the pt smoke?: No Smoking Status: Never smoker Does the pt drink ETOH?: Yes Does the pt have substance abuse?: No - Immunizations Immunizations are current?: Yes - POLST Patient has POLST: No PD ED PE NORMAL - Vitals Vital signs reviewed: Yes - General General: Alert and oriented X 3, No acute distress - HEENT HEENT: PERRL - Neck Neck: Supple, no meningeal sign, No bony TTP - Cardiac Cardiac: RRR, No murmur - Respiratory Respiratory: No respiratory distress, Clear bilaterally - Abdomen Abdomen: Non tender - Back Back: No CVA TTP, No spinal TTP - Extremities Extremities: No edema, No calf tenderness / cord - Neuro Neuro: Alert and oriented X 3, Normal speech Results - Vitals Vitals: Vital Signs - 24 hr 08/07/22 08/07/22 10:56 12:10 Temperature 36.6 C Heart Rate 78 71 Respiratory 14 16 Rate Blood Pressure 157/95 H 149/96 H O2 Saturation 96 98 Oxygen O2 Source Room air - EKG (time done) 1102 Rate: Rate (enter#) (68) Rhythm: NSR [employer]: Normal Intervals: Normal SC QRS: Normal Ischemia: Normal ST segments - Labs Labs: Laboratory Tests 08/07/22 08/07/22 08/07/22 11:21 11:21 11:21 WBC 8.7 RBC 5.19 Hgb 15.6 Hct 44.6 MCV 85.9 MCH 30.1 MCHC 35.0 RDW 12.5 Plt Count 314 MPV 8.6 Neut # (Auto) 5.5 Lymph # (Auto) 2.1 [place] # (Auto) 0.9 Eos # (Auto) 0.2 Baso # (Auto) 0.0 Absolute Nucleated RBC 0.00 Nucleated RBC % 0.0 Sodium 134 L Potassium 3.8 Chloride 98 L Carbon Dioxide 30 Anion Gap 6.0 BUN 19 Creatinine 1.1 Estimated GFR (MDRD) 73 L Glucose 91 Calcium 9.3 Total Bilirubin 1.2 H AST 21 ALT 35 Alkaline Phosphatase 78 Troponin I High Sens 3.5 Total Protein 7.5 Albumin 4.4 Globulin 3.1 Albumin/Globulin Ratio 1.4 Lipase 31 - Rads (name of study) Single view chest x-ray is unremarkable Radiology: Final report received, EMP read indepedently PD Medical Decision Making - ED course ED course: 41-year-old with resolved atypical chest pain, negative work-up. Heart score 1. PERC negative. Departure - Departure Disposition: 01 Home, Self Care Clinical Impression: Chest pain Condition: Good Record reviewed to determine appropriate education?: Yes Instructions: ED Chest Pain NonCardiac Comments: You can restart omeprazole which is available [id number]. Call your doctor to arrange a follow-up appointment, make the next available appointment. In the interim, return anytime if worse or if new symptoms develop. Forms: Activity restrictions Discharge Date/Time: 08/07/22 12:20
[2022-08-07 12:26] VITALS: BP 149/96
== END 2022-08-07 12:20 | disposition home or self-care (01) ==
LOC: ED 10:48
DX: R07.89 Other chest pain (principal)
CPT/HCPCS: 36415; 80053; 83690; 84484; 85025; 93005; 99282; 99284

== ENCOUNTER 2022-12-13 16:00 | Emergency (ER) | payer OTHER ==
[2022-12-13] MEDS ORDERED: BUFFERED LIDOCAINE 10 ML SYRINGE SUBQ STA (16:51)
--- NOTE | 2022-12-13 16:54 | ED Physician Documentation ---
PD HPI UPPER EXT INJURY - Stated complaint Stated Complaint: R HAND LAC - Chief complaint Chief Complaint: Laceration - History obtained from History obtained from: Patient - History of Present Illness Location: Right, Hand (dorsal hand over the base 5th MC proximal area. He states cut with Dremel blade that turned on accidentally when he reached hand over. Lac through skin. No weakness nor numbness. Wound opens with flex/extend of wrist. Mild bleeding still.) Where injury occurred: Home Timing - onset: Today Associated symptoms: No: Weakness, Numbness Review of Systems Neurologic: denies: Focal weakness, Numbness PD PAST MEDICAL HISTORY - Past Medical History Cardiovascular: Hypertension Respiratory: None Neuro: Headaches Endocrine/Autoimmune: None GI: Diverticulitis : None HEENT: None Psych: ADD/ADHD Musculoskeletal: Chronic back pain Derm: None - Past Surgical History Past Surgical History: Yes HEENT: Myringotomy (tubes) - Present Medications Home Medications: Ambulatory Orders Medication Instructions Recorded Confirmed hydroCHLOROthiazide 25 mg PO DAILY 11/07/20 09/18/21 [Hydrochlorothiazide] Famotidine [Pepcid] 20 mg PO DAILY #20 tablet 09/18/21 Telmisartan 20 mg PO 09/18/21 - Allergies Allergies/Adverse Reactions: Allergies Allergy/AdvReac Type Severity Reaction Status Date / Time No Known Drug Allergies Allergy Verified 12/13/22 16:23 - Social History Does the pt smoke?: No Smoking Status: Never smoker Does the pt drink ETOH?: Yes Does the pt have substance abuse?: No - Immunizations Immunizations are current?: Yes - POLST Patient has POLST: No PD ED PE NORMAL - Vitals Vital signs reviewed: Yes - General General: Alert and oriented X 3, No acute distress, Well developed/nourished - Derm Derm: Normal color, Warm and dry - Extremities Extremities: Other (right hand dorsal aspect over base 5th MC area with lac through skin to fatty tissue. No tendon involvement. Normal movement without pain. No FB (had been cleaned already prior to exam). It does open with tension upon wrist flexion. Mild bleeding after cleansing. ) - Neuro Neuro: Alert and oriented X 3, No motor deficit, No sensory deficit Results - Vitals Vitals: Vital Signs - 24 hr 12/13/22 12/13/22 16:21 17:36 Temperature 36.2 C L Heart Rate 67 65 Respiratory 16 16 Rate Blood Pressure 144/94 H 140/89 H O2 Saturation 98 99 Oxygen O2 Source Room air Procedures - Laceration (location) right dorsal hand Length in cm: 2 Wound type: Linear, Into subcut fat, Clean Neurovascular status: Sensory intact, Motor intact, Vascular intact Tendon involvement: Tendon intact Anesthesia: Lidocaine 1% with epi Wound preparation: Irrigated copiously NS, Wound explored, To the base Skin layer closure: Nylon, Running, Size #-0 - enter number (4), Sutures - enter # (8) PD Medical Decision Making - ED course Complexity details: considered differential (the wound is in tension area with movment and has mild bleeding still. I do not feel it will hold with just steristrips nor glue. Discussion with patient and opted for sutures. ), d/w patient Departure - Departure Disposition: 01 Home, Self Care Clinical Impression: Laceration of right hand Condition: Stable Record reviewed to determine appropriate education?: Yes Instructions: ED Laceration Hand Follow-Up: CINDI BERNARD MD [Primary Care Provider] - Comments: It is okay to wash and shower. Clean off the wound twice a day with soap and water, or peroxide and water. Apply some antibiotic ointment to it to keep it moist. Also to watch for signs of infection such as purulence, redness or increasing pain. Return to your primary care or the ER at the specified time for suture removal. Tylenol ibuprofen if needed for pains. Suture removal 7-10 days. Discharge Date/Time: 12/13/22 17:37
[2022-12-13 17:37] VITALS: BP 140/89
== END 2022-12-13 17:37 | disposition home or self-care (01) ==
LOC: ED 16:00
DX: S61.411A Laceration without foreign body of right hand, initial encounter (principal); W27.0XXA Contact with workbench tool, initial encounter
CPT/HCPCS: 12001; 99283

== ENCOUNTER 2023-06-12 09:41 | Emergency (ER) | payer OTHER ==
--- NOTE | 2023-06-12 10:34 | ED Physician Documentation ---
History of Present Illness - Stated complaint Stated Complaint: BACK PX - Chief complaint Chief Complaint: General - History obtained from History obtained from: Patient - History of Present Illness Timing: Today Pain level max: 0 Pain level now: 0 - Additonal information Additional information: 42-year-old male with a history of chronic back issues presents to the emergency department stating that he is trying to get a job at [employer]. He states that he needs preemployment paperwork filled out regarding any limitations to his mobility and lifting. He states that his primary care provider has been unable to see him. He states that the paperwork is due today. Patient has no acute issues at this time. No pain. His primary care is at the [facility] in [place]. Review of Systems Constitutional: denies: Fever, Chills GI: denies: Nausea, Vomiting, Diarrhea Musculoskeletal: denies: Neck pain, Back pain, Extremity pain Neurologic: denies: Headache PD PAST MEDICAL HISTORY - Past Medical History Cardiovascular: Hypertension Respiratory: None Neuro: Headaches Endocrine/Autoimmune: None GI: Diverticulitis : None HEENT: None Psych: ADD/ADHD Musculoskeletal: Chronic back pain Derm: None - Past Surgical History Past Surgical History: Yes HEENT: Myringotomy (tubes) - Present Medications Home Medications: Ambulatory Orders Medication Instructions Recorded Confirmed hydroCHLOROthiazide 25 mg PO DAILY 11/07/20 09/18/21 [Hydrochlorothiazide] Famotidine [Pepcid] 20 mg PO DAILY #20 tablet 09/18/21 Telmisartan 20 mg PO 09/18/21 - Allergies Allergies/Adverse Reactions: Allergies Allergy/AdvReac Type Severity Reaction Status Date / Time No Known Drug Allergies Allergy Verified 12/13/22 16:23 - Social History Does the pt smoke?: No Smoking Status: Never smoker Does the pt drink ETOH?: Yes Does the pt have substance abuse?: No - Immunizations Immunizations are current?: Yes - POLST Patient has POLST: No PD ED PE NORMAL - Vitals Vital signs reviewed: Yes - General General: Alert and oriented X 3, No acute distress - HEENT HEENT: Moist mucous membranes - Derm Derm: Warm and dry - Neuro Neuro: Alert and oriented X 3 - Psych Psych: Normal mood, Normal affect Results - Vitals Vitals: Vital Signs - 24 hr 06/12/23 06/12/23 09:45 10:40 Temperature 36 C L 36.3 C L Heart Rate 68 65 Respiratory 18 18 Rate Blood Pressure 153/95 H 149/92 H O2 Saturation 98 99 Oxygen O2 Source Room air PD Medical Decision Making - ED course Complexity details: considered differential, d/w patient ED course: No emergency medical condition at this time. Patient's medical history and medical records at the [facility]. Recommend that he follow-up with his PCP, possibly contact [facility] to see if he can see one of their physicians or follow- up with a occupational medicine clinic in [place]. This document was made in part using voice recognition software. While efforts are made to proofread this document, sound alike and grammatical errors may occur. Departure - Departure Disposition: 01 Home, Self Care Clinical Impression: Encounter for medical screening examination Condition: Good Instructions: ED Screening Exam Medical Nonurgent Follow-Up: [facility] [Provider Group] [facility] [Provider Group] Comments: [facility] does have their own physicians that may be able to complete this form for you, alternatively [facility] or the [facility] medical clinic may be able to help you as well. [facility] Call: [phone] Forms: PCP List Discharge Date/Time: 06/12/23 10:40
[2023-06-12 10:42] VITALS: BP 149/92; O2SAT 99
== END 2023-06-12 10:40 | disposition home or self-care (01) ==
LOC: ED 09:41
DX: Z02.1 Encounter for pre-employment examination (principal); M54.9 Dorsalgia, unspecified; G89.29 Other chronic pain; I10 Essential (primary) hypertension
CPT/HCPCS: 99281; 99282